=== PATIENT | male | born 1945 | race Hispanic/Latino ===

== ENCOUNTER → 2018-02-09 | Outpatient (CLI) | payer MEDICARE | END | disposition home or self-care (01) | LOC: RAH 10:43 | PROVIDERS: ATTEND Internal Medicine Medical Oncology | DX: R13.10 Dysphagia, unspecified (principal); C02.1 Malignant neoplasm of border of tongue | CPT/HCPCS: G8996; G8997; G8998; 74230; 92611 ==

== ENCOUNTER → 2019-04-04 | Outpatient (CLI) | payer MEDICARE ==
--- NOTE | 2019-04-04 11:00 | NUR ---
MBSS COMPLETED. SHALLOW PENETRATION WITH THIN AND NECTAR-THICK LIQUIDS. RECOMMEND MECHANICAL SOFT/GROUND, THIN LIQUIDS; PILLS WHOLE WITH LIQUIDS. SAFE SWALLOW PRECAUTIONS WERE REVIEWED WITH Pt AND . WRITTEN HANDOUT OF RECOMMENDATIONS WERE PROVIDED. STRICT SAFE SWALLOW PRECAUTIONS IN PLACE AT THIS TIME. Pt AND VERBALIZED UNDERSTANDING AND COMPLIANCE WITH RECOMMENDATIONS. PLEASE NOTE Pt REPORTS HE PARTICIPATED IN SPEECH THERAPY AFTER LAST MBSS. ALL QUESTIONS ANSWERED AT THIS TIME. Addendum: 04/04/19 at 1343 by ROCK DODGE, [facility] Amended: Links added.
== END | disposition home or self-care (01) ==
LOC: RAH 09:54
PROVIDERS: ATTEND Internal Medicine Medical Oncology
DX: C02.1 Malignant neoplasm of border of tongue (principal); R13.13 Dysphagia, pharyngeal phase
CPT/HCPCS: 74230; 92611